=== PATIENT | male | born 1985 | race Two or more races ===

== ENCOUNTER 2018-06-13 13:41 | Emergency (ER) | payer SELFPAY ==
[~2018-06-13] VITALS: Ht 172.7 cm; Wt 95.0 kg
[2018-06-13 14:13] VITALS: BP 137/89
[2018-06-13] MEDS ORDERED: AMLO5TAB4 PO (14:16)
== END 2018-06-13 17:13 | disposition left against medical advice (07) ==
LOC: ER 13:41
DX: Z53.21 Procedure and treatment not carried out due to patient leaving prior to being seen by health care provider (principal)